=== PATIENT | female | born 2000 | race Caucasian/White ===

== ENCOUNTER → 2020-03-19 14:23 | Outpatient (BNVA) | payer MEDICAID, SELFPAY | PROVIDERS: Visit Provider Nurse Practitioner Family | DX: L03.115 Cellulitis of right lower limb (principal); L03.90 Cellulitis, unspecified; S90.464A Insect bite (nonvenomous), right lesser toe(s), initial encounter; L03.031 Cellulitis of right toe | CPT/HCPCS: 81025 ==

== ENCOUNTER → 2020-05-30 11:47 | Outpatient (BNVA) | payer MEDICAID, SELFPAY | PROVIDERS: Family Provider Family Medicine; Visit Provider Nurse Practitioner Family | DX: Z32.01 Encounter for pregnancy test, result positive (principal) | CPT/HCPCS: 81025 ==

== ENCOUNTER 2020-12-10 05:37 | Inpatient (IN) | payer MEDICAID, SELFPAY ==
[2020-12-10] VITALS (102 sets, daily range): BP systolic 97–126; BP diastolic 56–83; PULSE 54–101; RESP 15–18; TEMP 36.2; O2SAT 90–100; BMI 25.7
[2020-12-10] MEDS: lactated ringers 1,000 ML 999 ML IV ×2 (05:41→06:20)
[2020-12-10] MEDS: ampicillin 2,000 MG in sodium chloride 0.9% (plus) 50 ML 100 MG IV (05:45)
[2020-12-10 06:25] LABS: Basophils # 0.1 10^3/uL (0.0-0.1); Basophils % 0.4 %; Eosinophils # 0.1 10^3/uL (0.0-0.8); Eosinophils % 0.8 %; Hemoglobin 12.1 g/dL (11.5-15.3); Lymphocytes # 2.8 10^3/uL (0.8-4.8); Lymphocytes % 18.1 %; Mean Corpuscular HGB Conc 31.8 g/dL (30.0-36.0); Mean Platelet Volume 9.4 fL (7.4-10.4); Monocytes # 1.1 10^3/uL (0.2-0.9); Neutrophils # 11.27 10^3/uL (1.8-7.7); Neutrophils % 73.1 %; Nucleated Red Blood Cells % 0 %; Platelet Count 324 10^3/cmm (130-400); Red Blood Count 4.32 10^6/uL (4.1-5.3); Red Cell Distribution Width 14.3 % (12.1-15.1); White Blood Count 15.4 10^3/uL (4.0-10.0)
--- NOTE | 2020-12-10 06:35 | ANES.PREANE2 ---
Pre-Anesthetic Assessment Pre-Anesthetic Assessment: Height/Weight: Height 1.6 m Pulse BP Pulse Ox 61 126/83 100 12/10/20 06:26 12/10/20 05:43 12/10/20 06:26 Preop Diagnosis: IUP w/ heart tone decelerations Proposed Procedure: Emergency Anesthetic Plan: Anesthesia: General Risk of > 500 ml blood loss (7ml/kg in children): Yes, adequate IV access and fluids planned Other Pertinent Information: Called for STAT , unable to obtain history prior to intervention, verbal consent obtained from patient PFS Anesthesia PFSH: Social History Smoking and tobacco status: current every day smoker Alcohol intake: never Lives independently: Yes Household members: family Housing: Manufactured/Mobile home Marital status: Single Number of children: 1 History of recent travel: No Female Reproductive History: : 2 Para: 1 Data Anesthesia CBC & Chem 7: 12/10/20 05:30 Other Labs: Laboratory Results - last 48 hr 12/10/20 12/10/20 05:30 05:30 WBC 15.4 H RBC 4.32 Hgb 12.1 Hct 38.0 MCV 88.0 MCH 28.0 MCHC 31.8 RDW 14.3 Plt Count 324 MPV 9.4 Neut % (Auto) 73.1 Lymph % (Auto) 18.1 [place] % (Auto) 7.0 Eos % (Auto) 0.8 Baso % (Auto) 0.4 Neut # (Auto) 11.27 H Lymph # (Auto) 2.8 [place] # (Auto) 1.1 H Eos # (Auto) 0.1 Baso # (Auto) 0.1 Nucleated RBC % (auto) 0 Nucleated RBCs # 0.0 Urine Opiates Screen Negative Ur Barbiturates Screen Negative Ur Phencyclidine Scrn Negative Ur Amphetamines Screen Negative U Benzodiazepines Scrn Negative Urine Cocaine Screen Negative U Marijuana (THC) Screen Positive H Cardiac Studies: No Data to Display
[2020-12-10 06:46] LABS: Amphetamines Screen Urine Negative (Negative); Barbiturates Screen Urine Negative (Negative); Benzodiazepines Screen Urine Negative (Negative); Cocaine Screen Urine Negative (Negative); Opiate Screen Urine Negative (Negative); PCP Screen Urine Negative (Negative); THC Screen Urine Positive (Negative)
--- NOTE | 2020-12-10 07:11 | XRR_ITS ---
PROCEDURE INFORMATION: Exam: XR Abdomen, 1 View Exam date and time: 12/10/2020 7:20 AM Age: 20 years old Clinical indication: Screening exam; Post surgical status; Counts after stat c section; Prior surgery; Surgery date: Post-operative (0-2 days) TECHNIQUE: Imaging protocol: XR of the abdomen. Views: Frontal supine view of the abdomen. 1 View. COMPARISON: No relevant prior studies available. FINDINGS: Gastrointestinal tract: No dilated bowel to suggest obstruction. Bones/joints: No significant acute finding. Soft tissues: No visible/definite radiopaque foreign body within the abdomen or pelvis. Surgical skin tra overlie the lower pelvis. Other findings: No definite abnormal masses or specific abnormal calcifications. XR/XR abdomen 1V* [id number] IMPRESSION: 1. No visible/definite radiopaque foreign body within the abdomen or pelvis. 2. No evidence for bowel obstruction. 3. Other details discussed above.
--- NOTE | 2020-12-10 08:00 | PC.NURSE ---
Pt to room OB2 via bed.
--- NOTE | 2020-12-10 08:20 | ANE.PACU2 ---
Inpatient post-anesthesia follow up: Airway intact: Yes Vital signs: Temperature 97.5 F Pulse Rate 80 Respiratory Rate 18 Blood Pressure 100/58 Pulse Oximetry 96 Oxygen Delivery Me thod Room Air Oxygen Flow Rate 10 Fraction of Inspir ed Oxygen Hydration adequate: Yes Nausea and vomiting: No Pain level: 4 Mental status: Baseline
[2020-12-10] MEDS: morphine 4 mg/mL SDV 1 mL 5 MG IVP (08:51)
--- NOTE | 2020-12-10 09:54 | PM.OBGYHP ---
Providers/Chief Complaint Admitting Physician: Jos Giron MD Primary Care Provider: [facility] Chief Complaint: Abdominal pain HPI INSULATION INSTALLER History of Present Illness Destinee Swanson is a 20 year old 2 para 1 female at 38 weeks estimated gestational age who presented to the hospital in active labor. Shortly after arrival heart tones demonstrated multiple decelerations and a couple of prolonged decelerations. Her cervix initially was 5 cm, and progressed to 7 cm. Unfortunately, the heart tones demonstrated a another prolonged deceleration and decision was made to proceed with a section. The patient's was relatively unremarkable. She did smoke tobacco consistently during her . She was positive for THC multiple times. She was chlamydia positive earlier in her . That was treated and rechecked and found to be negative. She is GBS positive. Her blood type is O+. The remainder of her labs were within normal limits. Present Details : 2 Para: 1 Labs Rubella: Immune RPR: Negative GBS: Positive Specific History Indications for Section: Distress and Non-reassuring FHT Review of Systems GI: Reports: abdominal pain Medications/Allergies Home Medications Medication Instructions Recorded Confirmed Last Taken Type doxycycline hyclate 100 mg capsule 100 mg PO BID 7 Days #14 cap 03/19/20 05/30/20 Unknown Rx cephalexin 500 mg capsule 500 mg PO BID 7 Days #14 cap 05/30/20 05/30/20 Unknown Rx Allergies Allergy/AdvReac Type Severity Reaction Status Date / Time No Known Allergies Allergy Verified 05/30/20 11:08 PFS INSULATION INSTALLER PFSH: Social History Smoking and tobacco status: current every day smoker Alcohol intake: never Lives independently: Yes Household members: family Housing: Manufactured/Mobile home Marital status: Single Number of children: 1 History of recent travel: No Vitals/I&O/Wt Last Vital Signs Pulse 80 12/10/20 09:50 Resp 16 12/10/20 08:51 BP 109/70 12/10/20 09:42 Pulse Ox 98 12/10/20 09:50 12/09/20 12/10/20 12/10/20 22:59 06:59 14:59 Output Total 150 / 150 Balance -150 / -150 Weight last 48 hrs Weight 145 lb Physical Exam Const: COMMON NORMALS: patient oriented x3 and alert HENMT: COMMON NORMALS: moist oral mucous membranes HEAD & SCALP: normal to inspection Chest: COMMONS NORMALS: normal inspection of the chest Resp: COMMON NORMALS: clear to auscultation bilaterally AUSCULTATION: clear to auscultation bilaterally Cardio: COMMON NORMALS: regular rate and regular rhythm RATE: regular rate RHYTHM: regular rhythm GI: INSPECTION: Yes normal to inspection and Yes other (Gravid) Extremity: COMMON NORMALS: normal to inspection GENERAL: Yes edema (Trace) Neuro: COMMON NORMALS: patient oriented x3, moves all extremities and no sensory deficits noted SENSORIUM/ORIENTATION: Yes alert Psych: COMMON NORMALS: mental status grossly normal Skin: COMMON NORMALS: no rashes or lesions noted GENERAL SKIN EXAM: no rashes or lesions noted Urinary Catheter Management^: Castellon: Cath Placed During This Visit: yes Reason for Continuing Indwelling Catheter: Perioperative Use in Selected Surgeries Urinary Catheter Date of Insertion: 12/10/20 Urinary Catheter Time of Insertion: 07:50 Data : 12/10/20 05:30 A&P Assessment and plan (1) 38 weeks gestation of : Decision was made to proceed with a stat section due to multiple prolonged decelerations. I briefly expressed the risks of bleeding and infection to the patient and her . Status: Acute (2) Marijuana use: Status: Acute (3) Prolonged heart deceleration: Status: Acute Attestations Medical Necessity Statement*: Routine and post care Coding Level of Care Code Acute Senior Software Quality Engineer for Chg Fwd Diagnoses 38 weeks gestation of Z3A.38 Marijuana use F12.90 Prolonged heart deceleration
--- NOTE | 2020-12-10 10:10 | PM.OP ---
Operative Report Date of procedure: December 10, 2020 Pre-op Diagnosis: IUP w/ heart tone decelerations Post-op diagnosis: same Procedure Done: Stat low-transverse section Specimens removed/disposition: 1. Male infant with Apgars of 4, 6, 7, 8. His weight was 2400 g 2. Placenta with a three-vessel cord delivered intact Surgeon: Jos Giron Anesthesia: General Estimated blood loss (mL): 1,500 Condition: stable Brief History: Refer to history and physical Procedure: The patient was brought to the negative pressure OR room because her Covid status was unknown. She was prepped and draped in usual sterile fashion. General anesthesia was performed immediately prior to incision A lower transverse skin incision was then made with a #10 blade. I then dissected down to the underlying subcutaneous tissue until arriving at the prerectal fascia. The fascia was then nicked with the scalpel bilaterally. The fascial incisions were then carried laterally with Delgado scissors. Attention was then turned to the superior aspect of the incision which was grasped with kochers and tented up away from the underlying rectus abdominis muscles. The muscles were then dissected away from the fascia manually, and later with Delgado scissors. Attention was then turned to the inferior aspect of the incision, and the fascia was dissected away from the underlying muscle in similar fashion. The rectus abdominis muscles were then spread manually. The peritoneum was entered manually. Excellent visualization of the uterus was noted. A lower transverse uterine incision was then made with a #10 blade. Upon arriving at the intrauterine cavity, the uterine incision was then extended manually. The was noted to be in vertex position. The baby was delivered without difficulty. After delivery of the head, the mouth and nose were suctioned at the site of the incision. Meconium was noted. There was no nuchal cord. The remainder of the body was then delivered and placed on the abdomen. The cord was cut and clamped. The baby was then handed to the waiting nurse. The placenta was removed intact. The uterus was externalized. The intrauterine cavity was cleansed of any remaining debris. The uterine incision was reapproximated in 2 layers. The first layer was performed with 0 Vicryl in a running locked stitch. The second layer was an imbricating stitch also using 0 Vicryl. The uterus was replaced into the abdomen. The peritoneum was then irrigated with warm saline. I reexamined the uterine incision and found it to be hemostatic. The rectus abdominis muscles were then reapproximated using 0 Vicryl in a running stitch. The fascia was then reapproximated using 0 Vicryl in running stitch. The skin was reapproximated using tra. A sterile dressing was placed. All counts were correct x2. Both the mother and baby were in stable condition.
[2020-12-10] MEDS: dextrose 5%-lactated ringers 1,000 ML 125 ML IV (10:42)
[2020-12-10] MEDS: morphine 4 mg/mL SDV 1 mL IVP (12:40)
[2020-12-10] MEDS: ketorolac 30 mg/mL INJ IVP ×2 (13:16→19:57)
[2020-12-10 19:59] LABS: Hematocrit 29.3 % (37.0-47.0); Hemoglobin 9.4 g/dL (11.5-15.3); Mean Corpuscular HGB Conc 32.1 g/dL (30.0-36.0); Mean Corpuscular Hemoglobin 28.2 pg (28.0-34.0); Mean Platelet Volume 8.9 fL (7.4-10.4); Platelet Count 250 10^3/cmm (130-400); Red Blood Count 3.33 10^6/uL (4.1-5.3); Red Cell Distribution Width 14.5 % (12.1-15.1); White Blood Count 15.5 10^3/uL (4.0-10.0)
[2020-12-11] VITALS (12 sets, daily range): BP systolic 100–115; BP diastolic 57–76; PULSE 77–86; RESP 15–17; TEMP 35.9–36.8
[2020-12-11] MEDS: hyDROXYzine 25 mg Capsule 50 MG PO (00:21)
[2020-12-11] MEDS: ketorolac 30 mg/mL INJ IVP (01:25)
[2020-12-11] MEDS: oxyCODONE-APAP 5-325 mg Tablet PO ×4 (07:40→23:00)
[2020-12-11] MEDS: prenatal vitamin Capsule 1 CAP PO (07:40)
[2020-12-11] MEDS: ferrous sulfate EC 325 mg Tablet PO ×2 (07:40→18:18)
--- NOTE | 2020-12-11 08:35 | PC.NURSE ---
shower supplies provided, pt encouraged to shower after she eats breakfast, and to removed dressing in shower. pt instructed to call for assistance with covering IV when ready for shower
[2020-12-11] MEDS: docusate sodium 100 mg Capsule PO ×2 (09:01→18:18)
[2020-12-11] MEDS: ibuprofen 800 mg tablet PO ×3 (09:02→21:40)
--- NOTE | 2020-12-11 09:47 | PC.NURSE ---
ambulated to [facility] to see baby
--- NOTE | 2020-12-11 12:12 | PM.OBGYPN ---
BOOKSTORE MANAGER Subjective Subjective: Interval history: The patient is doing very well. Urine output has been excellent. She has been ambulating since yesterday afternoon. Her pain is been well controlled. She passed flatus last night and had her diet advanced this morning without difficulty. There have been no concerns. Labor: Station: 0 Amniotic Membrane Status: Ruptured Monitor Mode: Palpation Status: Category III Vitals/I&O/Wt Last Vital Signs Temp 96.6 F L 12/11/20 10:43 Pulse 86 12/11/20 10:44 Resp 16 12/11/20 10:53 BP 105/65 12/11/20 10:44 Pulse Ox 96 12/10/20 15:46 12/10/20 12/11/20 12/11/20 22:59 06:59 14:59 Intake Total 825 / 1825 500 / 2325 600 / 600 Output Total 1200 / 1825 500 / 500 Balance -375 / 0 500 / 500 100 / 100 Weight last 48 hrs Weight 145 lb Physical Exam Narrative: EXAM NARRATIVE: She is in no acute distress Lungs are clear auscultation bilaterally Her heart has a regular rate and rhythm Her fundus is below the umbilicus and firm Her dressing is clean, dry and intact Her extremities have trace edema Urinary Catheter Management^: Castellon: Cath Placed During This Visit: yes, but has since been removed by the nurse Reason for Continuing Indwelling Catheter: Decision to DC Catheter Urinary Catheter Date of Insertion: 12/10/20 Urinary Catheter Time of Insertion: 07:50 Date Urinary Catheter Removed: 12/10/20 Time Urinary Catheter Discontinued: 17:11 Data : 12/10/20 19:42 A&P Assessment and plan (1) Status post : If the patient continues to do well, I anticipate she will build to be discharged home tomorrow depending on the status of her baby. At this point, she appears to be recovering extremely well. Status: Acute Attestations Medical Necessity Statement*: I anticipate a routine post course and the patient will be discharged home tomorrow Coding Level of Care Code Acute Radioisotope Production Operator for Ninoska Scott Diagnoses Status post Z98.891
--- NOTE | 2020-12-11 12:57 | PC.NURSE ---
ambulated to [facility] to see baby
--- NOTE | 2020-12-11 18:45 | PC.NURSE ---
to [facility] to see baby
[2020-12-12 04:30] VITALS: BP 110/71; PULSE 76; TEMP 36.2
[2020-12-12 04:31] VITALS: TEMP 36.3
--- NOTE | 2020-12-12 04:48 | PM.OBGYDC ---
Discharge Providers MOUNTAIN OR GLACIER GUIDE Date of Admission: 12/10/20 07:16 Date of Discharge: 12/12/20 Attending Provider at Admission: Jos Giron MD Attending Provider at Discharge: Jos Giron MD Primary Care Provider: [facility] Diagnoses at Discharge Discharge Diagnosis (1) Status post : Status: Acute (2) Marijuana use: Status: Acute (3) Prolonged heart deceleration: Status: Acute (4) 38 weeks gestation of : Status: Acute Reason for Visit Reason for Visit: Abdominal pain Hospital Course Hospital Course The patient is a 2 para 1-0-1-1 at 38 weeks estimated gestational age who presented to the hospital in active labor. She had spontaneous rupture membranes was noted to have thick meconium. She was also noted to have multiple prolonged decelerations that resulted in a emergent . The patient was placed under general anesthesia. The section was unremarkable. Her recovery was also unremarkable. She and her baby were both positive for THC. As result DFS was contacted and spoke with the patient regarding her future plans with her and her baby. Her course was unremarkable. She recovered well. Her pain was reasonably well controlled. Her bleeding was within normal limits. She bottle-fed her baby. Her baby has required level 2 nursery care. The baby will not be discharged quite yet. Information Peripartum Data: Delivery Method: Physical Exam Narrative: EXAM NARRATIVE: She is in no acute distress Lungs are clear auscultation bilaterally Her heart has a regular rate and rhythm Her fundus is below the umbilicus and firm Her dressing is clean, dry and intact Her extremities have trace edema Urinary Catheter Management^: Castellon: Cath Placed During This Visit: yes, but has since been removed by the nurse Reason for Continuing Indwelling Catheter: Decision to DC Catheter Urinary Catheter Date of Insertion: 12/10/20 Urinary Catheter Time of Insertion: 07:50 Date Urinary Catheter Removed: 12/10/20 Time Urinary Catheter Discontinued: 17:11 Discharge Data Data Completed and Pending: Completed Studies During Hospitalization Category Date Time Status XR abdomen 1V* [id number] [id number] Stat Exams 12/10/20 07:11 Completed Addt'l Data from Hospital Stay: On admission her white blood count was 15.4 with a hemoglobin of 12.1 and a platelet count of 324 at 1900 on her postoperative day her white blood count was 15.5 with a hemoglobin of 9.4 and a platelet count of 250. Her drug screen demonstrated a positive THC screen. Vitals: Last Vital Signs Temp 97.3 F L 12/12/20 04:31 Pulse 76 12/12/20 04:30 Resp 17 12/11/20 23:00 BP 110/71 12/12/20 04:30 Pulse Ox 96 12/10/20 15:46 Discharge Plan Discharge Patient Disposition: Home Condition: Stable Prescriptions: New ibuprofen 800 mg Tablet 800 mg PO TID Qty: 30 RF: 0 oxycodone-acetaminophen 5-325 mg Tablet 1 - 2 tab PO Q4H PRN (Reason: Moderate To Severe Pain) Qty: 20 RF: 0 DOK 100 mg Capsule 100 mg PO BID PRN (Reason: Constipation) Qty: 20 RF: 0 Continued 1 tab PO DAILY RF: 0 Discharge Orders: Discharge Order (Routine); Ordered 12/12/20 Ordered By: Jos Giron Referrals: Jos Giron MD [Physician] - 7-10 days Discharge Diet: Regular Discharge Activity: Limit activity as instructed Discharge Attestations MOUNTAIN OR GLACIER GUIDE Time Spent in Discharge Care*: less than 30 min Coding Level of Care Code Acute Agent Broker for Chg Fwd Diagnoses Status post Z98.891 Marijuana use F12.90 Prolonged heart deceleration 38 weeks gestation of Z3A.38
[2020-12-12] MEDS: prenatal vitamin Capsule 1 CAP PO (08:07)
[2020-12-12 08:08] VITALS: RESP 18
[2020-12-12] MEDS: ferrous sulfate EC 325 mg Tablet PO (08:08)
[2020-12-12] MEDS: docusate sodium 100 mg Capsule PO (08:08)
[2020-12-12] MEDS: ibuprofen 800 mg tablet PO (08:08)
[2020-12-12] MEDS: oxyCODONE-APAP 5-325 mg Tablet PO (08:08)
[2020-12-12 08:13] VITALS: BP 117/70; PULSE 90
[2020-12-12 11:11] VITALS: BP 117/70; PULSE 90
--- NOTE | 2020-12-12 11:11 | PC.NURSE ---
pt is rooming-in with
== END 2020-12-12 11:11 | disposition home or self-care (01) | DRG 787 ==
LOC: OBGYN 12-12 04:54 → OPOB 12-12 08:32
PROVIDERS: Admitting Provider Family Medicine; Family Provider Family Medicine; Visit Provider Family Medicine
PROC: 10D00Z1 Extraction of Products of Conception, Low, Open Approach (ICD-10-PCS; CPT 59514; principal; 2020-12-10 06:40)
DX: O76 Abnormality in fetal heart rate and rhythm complicating labor and delivery (principal); O99.324 Drug use complicating childbirth; O99.334 Smoking (tobacco) complicating childbirth; F17.210 Nicotine dependence, cigarettes, uncomplicated; F12.90 Cannabis use, unspecified, uncomplicated; Z3A.38 38 weeks gestation of pregnancy; Z37.0 Single live birth
CPT/HCPCS: 12345; 36415; 51702; 59409; 74018; 80306; 85025; 85027; J0131; J0290; J0330; J1885; J2270; J2405; J2704; J3010

== ENCOUNTER 2023-11-26 14:18 | Emergency (ER) | payer MEDICAID, SELFPAY ==
[2023-11-26 14:28] VITALS: BP 109/65; PULSE 84; RESP 15; TEMP 37.1; O2SAT 98; BMI 22.3
--- NOTE | 2023-11-26 14:43 | W.ED.FEMALGU ---
HPI - Female Genitourinary General: Chief complaint: General Medical Stated complaint: STD testing Time Seen by Provider: 11/26/23 14:31 Source: patient Mode of arrival: ambulatory Limitations: no limitations History of Present Illness: Patient is a 23-year-old female presents to ED today requesting STD testing. She is complaining of vaginal discharge, odor, and itching. She states she did have an unprotected sexual encounter several weeks ago in which she thinks she may have been exposed to chlamydia. She is not complaining of any pelvic pain. No fevers or vomiting. She has not noticed any genital rashes or lesions. Patient does state at some point she was seen [facility] the [facility] and had STD testing that was all normal but questions the accuracy due to her symptoms. Denies urinary symptoms. Also states she wants hepatitis testing due to IV drug use. MD elicited complaint: vaginal discharge and possible STD Onset (ago): week(s) Vaginal bleeding: none Exacerbating factors: none Relieving factors: none Associated symptoms: Reports no associated symptoms and vaginal discharge; Deny abdominal pain, headache(s) or nausea Treatment prior to arrival: none Sexual activity: Yes Patient : No Date of Last Menstrual Period: 11/18/23 Review of Systems Const: Denies: fever(s), chills, body aches, fatigue or malaise Card: Denies: chest pain Resp: Denies: dyspnea GI: Denies: abdominal pain, nausea, vomiting, early satiety or diarrhea : Reports: genital pruritis, vaginal odor and vaginal discharge; Denies: flank pain, difficulty voiding, dysuria, urinary frequency, urinary urgency, urinary hesitancy, genital lesions, vaginal bleeding or pelvic pain Musc: Denies: neck pain, back pain, extremity pain or joint pain Skin/Breast: Denies: rash Neuro: Denies: headache(s), numbness in extremities, weakness in extremities or sensory changes PFSH ED PFSH: Family History Grandmother Cancer Mother Cancer Rheumatoid arthritis Grandfather Cancer Family/Other Lupus (systemic lupus erythematosus) Other [id number] deficiency Denies family history of Diabetes CAD (coronary artery disease) Social History Smoking and tobacco/nicotine status: current every day tobacco/nicotine user cigarettes Packs smoked per day: 1 Years cigarettes smoked: 5 Alcohol intake: current Alcohol intake frequency: holidays/special occasions only Alcohol type: hard liquor Substance/Drug Use: current Substance/Drug use frequency: few times a month Adopted: No Caregiver/support person: Yes Lives independently: Yes Household members: family Housing: Manufactured/Mobile home Marital status: Single Number of children: 2 Highest education level completed: 10th Grade service: No Current occupational status: unemployed Current gender identity: Female Special star needs: No Agree to transfusion: Yes Female Reproductive History: Date of last menstrual period: 11/18/23 Para: 1 Physical Exam Const: COMMON NORMALS: no acute distress, average body habitus, patient oriented x3, no limitations, healthy appearing, alert and well nourished GI: COMMON NORMALS: Normal to inspection, nondistended, normoactive bowel sounds present, Soft to palpation, non-tender, No hepatosplenomegaly present and no masses INSPECTION: Yes normal to inspection PALPATION: Yes Soft to palpation and Yes No hepatosplenomegaly present : COMMON NORMALS: Yes no CVA tenderness BLADDER/KIDNEY EXAM: Yes no CVA tenderness OTHER: deferred exam Back/Pelvis: COMMON NORMALS: no CVA tenderness Neuro: COMMON NORMALS: patient oriented x3 SENSORIUM/ORIENTATION: Yes alert Course Vital Signs: Vital signs: Vital Signs Temperature 98.7 F 11/26/23 14:28 Pulse Rate 84 11/26/23 14:28 Respiratory Rate 15 11/26/23 14:28 Blood Pressure 109/65 11/26/23 14:28 Pulse Oximetry 98 11/26/23 14:28 Oxygen Delivery Me thod Room Air 11/26/23 14:28 MDM - Female Medical Decision Making Patient here requesting STD testing. She declined pelvic exam thus self collection swabs for gonorrhea/chlamydia/wet prep were provided and sent to lab. Urine preg negative. She does want to be treated prophylactically therefore she was given IM Rocephin and will be sent home with a prescription for Doxycycline. She states she has an upcoming appointment with primary care in [place]. Recommend she speak to them about hepatitis panel if she is concerned. She has no signs/symptoms of acute hepatitis today. Also recommend she speak to them about updating her PAP smear if she is due. Medical Records I reviewed the patient's medical records. Lab Data I reviewed the patient's lab results. Laboratory Results HCG, Qual Negative (Negative) 11/26/23 15:16 No radiology studies performed this visit Discharge Plan Discharge Patient Disposition: Home Clinical Impression: Vaginal discharge Condition: Stable Prescriptions: New doxycycline monohydrate 100 mg capsule 100 mg PO Q12H 10 Days Qty: 20 0RF No Action paroxetine HCl [Paxil] 20 mg tablet 20 mg PO DAILY Qty: 30 1RF Ed A-Hist DM 4-10-10 mg tablet 1 tab PO Q6H PRN (Reason: allergy symptoms) Qty: 20 0RF azithromycin [Zithromax Z-Clay] 250 mg tablet See Rx Instructions PO .COMPLEX Qty: 6 0RF Rx Instructions: take 500 mg today (day 1), then 250 mg for 4 days (days 2-5) PO Discharge Orders: Discharge ED (Routine); Ordered 11/26/23 Ordered By: Ana Salvador Activity Restrictions/Additional Instructions: As we discussed the results of your gonorrhea/chlamydia are send outs and will take a few days to result. You should be contacted with any positive results. I will contact you later in regards to your wet prep IF anything is abnormal/requires treatment. Otherwise, like we talked about, I would like you to follow-up with your primary care appointment that you already have scheduled. Your test was negative. Coding Level of Care Code ED Land Sales Agent for Ninoska Scott
[2023-11-26 15:40] LABS: HCG Qualitative Urine. Negative (Negative)
[2023-11-26] MEDS: cefTRIAXone 500 MG in water for injection-sterile 1 ML IM (15:58)
[2023-11-26 15:59] VITALS: PULSE 86; O2SAT 98
[2023-11-27 13:24] LABS: Chlamydia Trachomatis RNA TMA NOT DETECTED (NOT DETECTED); Neisseria Gonorrhoeae RNA, TMA NOT DETECTED (NOT DETECTED); Trichomonas Vaginalis RNA NOT DETECTED (NOT DETECTED)
== END 2023-11-26 16:00 | disposition home or self-care (01) ==
PROVIDERS: Emergency Provider Physician Assistant
DX: N89.8 Other specified noninflammatory disorders of vagina (principal)
CPT/HCPCS: 81025; 87210; 87491; 87591; 96372; 99284; J0696

== ENCOUNTER → 2025-06-28 09:15 | Outpatient (BNVA) | payer MEDICAID, SELFPAY | PROVIDERS: PCP Nurse Practitioner Family; Visit Provider Nurse Practitioner Family | DX: Z72.51 High risk heterosexual behavior (principal) | CPT/HCPCS: 87491; 87591; 87661 ==

== ENCOUNTER → 2025-07-27 12:16 | Outpatient (BNVA) | payer MEDICAID, SELFPAY | PROVIDERS: PCP Nurse Practitioner Family; Visit Provider Nurse Practitioner | DX: N39.0 Urinary tract infection, site not specified (principal); Z72.51 High risk heterosexual behavior; R39.9 Unspecified symptoms and signs involving the genitourinary system | CPT/HCPCS: 81000; 87086; 87491; 87591 ==

== ENCOUNTER → 2025-10-12 11:21 | Outpatient (BNVA) | payer MEDICAID, SELFPAY | PROVIDERS: PCP Nurse Practitioner; Visit Provider Nurse Practitioner Family | DX: N39.0 Urinary tract infection, site not specified (principal); R30.0 Dysuria | CPT/HCPCS: 81000 ==

== ENCOUNTER → 2025-11-10 13:28 | Outpatient (BNVA) | payer MEDICAID, SELFPAY | PROVIDERS: PCP Nurse Practitioner; Visit Provider Nurse Practitioner Family | DX: R39.9 Unspecified symptoms and signs involving the genitourinary system (principal) | CPT/HCPCS: 81000 ==